=== PATIENT | female | born 1985 | race American Indian/Alaskan Native ===

== ENCOUNTER 2016-09-27 15:24 | Inpatient (IN) | payer MEDICAID ==
[2016-09-27] MEDS ORDERED: POLYCILLIN/NS 2 GM/100 ML 100 ML IV ONE (16:17)
[2016-09-27] MEDS ORDERED: SUBLIMAZE IV PRN (16:18)
[2016-09-27 16:24] LABS: Hematocrit 37.9 % (30.3-42.9); Hemoglobin 12.5 gm/dl (10.1-14.3); Mean Corpuscular HGB Conc 33 % (30-34); Mean Corpuscular Hemoglobin 32 pg (28-32); Mean Corpuscular Volume 95 fl (79-97); Platelet Count 168 K/mm3 (140-440); Red Blood Count 3.98 M/mm3 (3.65-5.03); White Blood Count 9.4 K/mm3 (4.5-11.0)
[2016-09-27] MEDS: LACTATED RINGERS 1,000 ML IV SCH ×2 (16:45→18:13)
[2016-09-27] MEDS ORDERED: PITOCin/NS 30 UNIT/500ML 500 ML IV SCH ×3 (17:00→18:00)
[2016-09-27] MEDS ORDERED: PITOCin/NS 20 UNIT/1000ML DRIP 1,000 ML IV SCH ×2 (17:00→18:00)
[2016-09-27] MEDS ORDERED: ePHEDrine SULFATE IV PRN ×2 (17:02→19:01)
[2016-09-27] MEDS ORDERED: BRETHINE IVP PRN (17:02)
[2016-09-27] MEDS ORDERED: BRETHINE SUB-Q PRN (17:02)
[2016-09-27] MEDS ORDERED: MINERAL OIL PO PRN (17:02)
[2016-09-27] MEDS ORDERED: ZOFRAN IV PRN (17:02)
--- NOTE | 2016-09-27 17:12 | History and Physical Report ---
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 History: chlamydia, herpes Family/Genetic History: heart disease, hypertension, other (breast cancer) Social history: , smoking - Obstetrical History Expected Date of Delivery: 09/28/16 Actual Gestation: 39 Week(s) 6 Day(s) : 4 Para: 3 Hx # Term Pregnancies: 3 Number of Pregnancies: 0 Spontaneous Abortions: 0 Induced : 0 Number of Living Children: 3 Medications and Allergies Allergies Allergy/AdvReac Type Severity Reaction Status Date / Time No Known Allergies Allergy Verified 09/05/13 09:28 Home Medications Medication Instructions Recorded Confirmed Last Taken Type Docusate Sodium [Colace] 100 mg PO BID PRN #60 capsule 08/22/13 09/27/16 Unknown Rx Ferrous Sulfate [Feosol 325 MG tab] 325 mg PO QDAY #30 tablet 08/22/13 09/27/16 Unknown Rx Ibuprofen [Motrin 800 MG tab] 800 mg PO TID PRN #30 tablet 08/22/13 09/27/1611/08 Rx Hydrocodone Bit/Acetaminophen 1 each PO Q4H #24 tablet 09/07/13 09/27/16 Unknown Rx [Vicodin 5/500] Pnv95/Ferrous Fumarate/FA 1 tab PO QDAY 09/27/16 09/27/16 09/26/16 History [ Vitamins Tablet] 1 tab valACYclovir [Valtrex] 500 mg PO QDAY 09/27/16 09/27/16 09/26/16 History 0800 Active Meds: Active Medications Fentanyl (Sublimaze) 100 mcg IV ONCE PRN PRN Reason: Pain , Severe (7-10) Ampicillin Sodium (Polycillin/Ns 2 Gm/100 Ml) 100 mls @ 100 mls/hr IV ONCE ONE Stop: 09/27/16 17:16 Last Admin: 09/27/16 16:45 Dose: 100 mls/hr Lactated Ringer's (Lactated Ringers) 1,000 mls @ 125 mls/hr IV DIRECT DAVID Last Admin: 09/27/16 16:45 Dose: 125 mls/hr Oxytocin/Sodium Chloride (Pitocin/Ns 20 Unit/1000ml Drip) 1,000 mls @ 0 mls/hr IV DIRECT DAVID PRN Reason: As Directed Oxytocin/Sodium Chloride (Pitocin/Ns 30 Unit/500ml) 500 mls @ 4 mls/hr IV TITR DAVID; 4 MILLIUNITS/MIN PRN Reason: Protocol Last Admin: 09/27/16 16:45 Dose: 4 mls/hr Review of Systems All systems: negative Constitutional: weight gain Eyes: no blurred vision, no pain Ears, nose, mouth and throat: deferred Cardiovascular: no chest pain, no palpitations, no edema, no syncope Breasts: deferred Gastrointestinal: no abdominal pain, no nausea, no vomiting, no diarrhea, no constipation Genitourinary: deferred Rectal Exam: deferred Integumentary: deferred - Vital Signs Vital signs: Vital Signs Pulse Pulse Ox 114 H 99 09/27/16 15:46 09/27/16 15:46 Temp Pulse Resp BP Pulse Ox 98.3 F 109 H 18 120/64 99 09/27/16 16:05 09/27/16 16:05 09/27/16 16:05 09/27/16 16:05 09/27/16 16:05 - Physical Exam Breasts: Positive: deferred Cardiovascular: Regular rate Lungs: Positive: Clear to auscultation Abdomen: Positive: normal appearance, soft, normal bowel sounds. Negative: distention, tenderness Genitourinary (Female): Positive: normal external genitalia, normal perenium, perineal/vulvar lesions Vagina: Positive: normal moisture. Negative: discharge Cervix: Negative: lesion Uterus: Positive: normal contour Anus/Rectum: Positive: normal perianal skin Deep Tendon Reflex Grade: Normal +2 - Obstetrical FHR: category 1 Cervical Dilatation: 4 Cervical Effacement Percentage: 60 station: -1 Uterine Contraction Pattern: Irregular Uterine Contraction Intensity: Mild Results Result Diagrams: 09/27/16 16:00 All other labs normal. Assessment and Plan A/P HD#1 s/p srom with meconium GBS + on amp started will start with pitocin close monitor consults signed and thourgh risk reviewed discussed good amara for successful prev x2, came in active labor, non morbid obese expect vaginal delivery
[2016-09-27] MEDS ORDERED: LACTATED RINGERS 1,000 ML IV SCH (18:00)
[2016-09-27] MEDS ORDERED: ePHEDrine SULFATE ONE (18:14)
[2016-09-27] MEDS ORDERED: NARCAN 2 MG/2 ML IV PRN (19:01)
--- NOTE | 2016-09-27 19:01 | Anesthesia Consultation ---
Anesthesia Consult and Med Hx Date of service: 09/27/16 - Airway Anesthetic Teeth Evaluation: Good ROM Head & Neck: Adequate Mental/Hyoid Distance: Adequate Mallampati Class: Class II Intubation Access Assessment: Good - Pulmonary Exam CTA: Yes - Cardiac Exam Cardiac Exam: No Murmur - Pre-Operative Health Status ASA Pre-Surgery Classification: ASA2 Proposed Anesthetic Plan: Epidural - Pulmonary Hx Asthma: No COPD: No Hx Pneumonia: No - Cardiovascular System Hx Hypertension: No - Central Nervous System Hx Seizures: No Hx Psychiatric Problems: No - Endocrine Hx Renal Disease: No Hx End Stage Renal Disease: No Hx Hypothyroidism: No Hx Hyperthyroidism: No - Hematic Hx Anemia: No Hx Sickle Cell Disease: No - Other Systems Hx Alcohol Use: No
[2016-09-27] MEDS ORDERED: fentaNYL-BUPIV 2 MCG/ML-0.125% 100 ML EPIDURAL SCH (20:00)
[2016-09-27] MEDS ORDERED: POLYCILLIN/NS 1 GM/50 ML 50 ML IV SCH (21:06)
[2016-09-28] MEDS ORDERED: TYLENOL PO PRN (00:55)
[2016-09-28] MEDS ORDERED: BENADRYL PO PRN (00:55)
[2016-09-28] MEDS ORDERED: TUCKS PAD TP PRN (00:55)
[2016-09-28] MEDS ORDERED: LANSINOH TP PRN (00:55)
[2016-09-28] MEDS ORDERED: PHENERGAN PO PRN (00:55)
[2016-09-28] MEDS ORDERED: DERMOPLAST TP PRN (00:55)
[2016-09-28] MEDS ORDERED: MILK OF MAGNESIA PO PRN (00:55)
[2016-09-28] MEDS ORDERED: ZOFRAN IV PRN (00:55)
[2016-09-28] MEDS ORDERED: DULCOLAX PR PRN (00:55)
[2016-09-28] MEDS ORDERED: PHENERGAN PR PRN (00:55)
--- NOTE | 2016-09-28 00:55 | Procedure Note ---
OB Delivery Note - Delivery Date of Delivery: 09/28/16 Surgeon: FAY YEPEZ Estimated blood loss: 200cc - Vaginal Delivery position: OP Intrapartum events: meconium Delivery augmentation: pitocin Delivery monitor: external FHT, external uterine Route of delivery: Delivery placenta: spontaneous Delivery cord: 3 umbilical vessels Episiotomy: none Delivery laceration: other (periurethral) Delivery repair: vicryl Anesthesia: epidural Delivery comments: Patient was noted to be c/c/E and commenced to pushing. patient delivered a viable female infact over intact perineum at 0021. Apgars 8 and 9. suction and cord clamped and cut and handed to mom. Placenta delivered intact with three vessel cord at 0026. Weight 8 pounds 5 ounces . a periurethral lac repaired with 3-0 vicryl on the left. Excellent hemostasis and QJD=621. Patient tolerated procedure well. Bonding and breast feeding baby
[2016-09-28] MEDS ORDERED: SODIUM CHLORIDE FLUSH SYRINGE 10 ML IV NR (01:00)
[2016-09-28] MEDS: NORCO 5/325 PO PRN (01:50)
[2016-09-28] MEDS ORDERED: BOOSTRIX IM ONE (06:00)
[2016-09-28] MEDS: MOTRIN PO SCH ×2 (08:10→16:30)
--- NOTE | 2016-09-28 08:19 | Progress Note ---
Assessment and Plan O: VSS AF PP H/H: A: Stable PP Day S/P x 3 P: D/C am Subjective - Subjective Date of service: 09/28/16 Patient reports: appetite normal, voiding normally, pain well controlled, flatus , ambulating normally : doing well Objective - Vital Signs Latest vital signs: Vital Signs Temp Pulse Pulse Resp BP BP Pulse Ox 09/28/16 04:42 99.4 F 93 H 18 126/67 09/28/16 02:29 99.2 F 91 H 20 127/72 09/28/16 01:41 83 124/64 09/28/16 01:27 89 117/57 09/28/16 01:11 86 114/81 09/28/16 00:56 81 114/60 09/28/16 00:41 77 118/64 09/28/16 00:26 76 137/67 09/28/16 00:25 99.2 F 09/28/16 00:16 90 100 09/28/16 00:12 103 H 100 09/28/16 00:08 96 H 128/75 09/28/16 00:07 93 H 100 09/28/16 00:02 86 100 09/27/16 23:57 79 100 09/27/16 23:52 81 100 09/27/16 23:47 106 H 100 09/27/16 23:41 83 100 09/27/16 23:37 76 118/65 100 09/27/16 23:32 82 100 09/27/16 23:26 104 H 100 09/27/16 23:21 85 100 09/27/16 23:16 80 100 09/27/16 23:12 80 100 09/27/16 23:07 90 127/60 100 09/27/16 23:02 88 100 09/27/16 22:56 81 100 09/27/16 22:52 82 100 09/27/16 22:47 84 98 09/27/16 22:42 83 99 09/27/16 22:38 80 126/68 09/27/16 22:37 77 98 09/27/16 22:31 78 98 09/27/16 22:27 78 98 09/27/16 22:21 101 H 96 09/27/16 22:17 94 H 99 09/27/16 22:12 78 100 09/27/16 22:07 86 125/81 100 09/27/16 22:02 77 99 09/27/16 21:57 94 H 99 09/27/16 21:51 88 99 09/27/16 21:47 78 99 09/27/16 21:41 81 100 09/27/16 21:38 72 127/76 09/27/16 21:37 86 98 09/27/16 21:31 93 H 99 09/27/16 21:27 86 99 09/27/16 21:22 85 99 09/27/16 21:16 81 99 09/27/16 21:12 76 99 09/27/16 21:08 84 130/77 09/27/16 21:07 77 99 09/27/16 21:01 79 100 09/27/16 20:56 81 99 09/27/16 20:52 79 99 09/27/16 20:46 79 99 09/27/16 20:42 77 100 09/27/16 20:38 75 125/75 09/27/16 20:37 77 99 09/27/16 20:32 75 99 09/27/16 20:26 83 99 09/27/16 20:21 86 99 09/27/16 20:17 77 99 09/27/16 20:12 82 99 09/27/16 20:07 79 129/74 99 09/27/16 20:02 89 99 09/27/16 19:57 76 99 09/27/16 19:51 78 99 09/27/16 19:47 74 99 09/27/16 19:42 75 99 09/27/16 19:38 66 126/80 09/27/16 19:37 74 97 09/27/16 19:35 98.1 F 18 09/27/16 19:32 81 18 99 09/27/16 19:27 79 99 09/27/16 19:22 76 99 09/27/16 19:17 82 99 09/27/16 19:12 83 98 09/27/16 19:07 82 117/57 98 09/27/16 19:05 91 H 117/56 09/27/16 19:03 88 123/65 09/27/16 19:02 92 H 97 09/27/16 19:01 88 120/68 09/27/16 18:59 86 124/70 09/27/16 18:57 104 H 121/77 98 09/27/16 18:56 85 117/72 09/27/16 18:53 80 105/58 09/27/16 18:52 81 99 09/27/16 18:51 75 113/64 09/27/16 18:49 82 112/61 09/27/16 18:47 91 H 120/75 99 09/27/16 18:45 97 H 114/68 09/27/16 18:43 81 113/59 09/27/16 18:42 86 118/59 99 09/27/16 18:02 86 100 09/27/16 17:57 87 100 09/27/16 17:55 88 118/69 09/27/16 16:05 98.3 F 109 H 18 120/64 99 09/27/16 15:49 115 H 120/60 09/27/16 15:46 114 H 99 Intake and Output 09/27/16 09/28/16 09/28/16 22:59 06:59 14:59 Intake Total 3080 Output Total 500 Balance 2580 Intake: IV 3080 Polycillin/Ns 1 gm/50 ml 50 50 ml @ 100 mls/hr IV Q4HR DAVID Rx#:[id number] Lactated Ringers 1,000 ml 2000 @ 125 mls/hr IV DIRECT DAVID Rx#:[id number] PITOCin/NS 20 UNIT/1000ML 655 DRIP 1,000 ML @ 125 mls/ hr IV DIRECT DAVID Rx#: [id number] Left Wrist 375 Output: Urine 500 Indwelling Catheter 500 Other: Total, Output Amount 500 Weight 93.44 kg Estimated Blood Loss 200 - Exam Breasts: Present: deferred Abdomen: Present: normal appearance, soft Vulva: both: normal Uterus: Present: normal, firm, fundal height below umbilicus. Absent: bogginess Extremities: Present: normal Deep Tendon Reflex Grade: Normal +2
--- NOTE | 2016-09-28 09:05 | Discharge Summary ---
Providers - Providers Date of Admission: 09/27/16 15:28 Date of discharge: 09/29/16 Attending physician: FAY YEPEZ MD Primary care physician: SONIA STALLINGS Hospitalization Reason for admission: active labor, IUP at term Delivery: Episiotomy: none Laceration: none Other procedures: none complications: none Discharge diagnosis: IUP at term delivered baby: female Condition at discharge: Good Disposition: DISCHARGED TO HOME OR SELFCARE Plan - Discharge Medications Prescriptions: Ibuprofen [Motrin 600 MG tab] 600 mg PO Q6H PRN #40 tablet PRN Reason: Pain - Provider Discharge Summary Activity: routine, no sex for 6 weeks, no heavy lifting 4 weeks, no strenuous exercise Diet: routine Additional instructions: [] Smoking cessation referral if applicable(refer to patient education folder for contact #) [] Refer to [facility]'s [facility] Booklet Call your doctor immediately for: * Fever > 100.5 * Heavy vaginal bleeding ( >1 pad per hour) * Severe persistent headache * Shortness of breath * Reddened, hot, painful area to leg or breast * Drainage or odor from incision. * Keep incision clean and dry at all times and follow doctor's instructions regarding bathing/showering - Follow up plan Follow up: SONIA STALLINGS MD [Primary Care Provider] - CAMACHO ROWELL CNM [Advanced Practice Nurse] - (RTO 4 weeks )
--- NOTE | 2016-09-28 09:56 | Progress Note ---
Subjective Date of service: 09/28/16 Interval history: 1st day after normal vaginal delivery Patient is active, ambulated well. Pain is well controlled. No residual neurological deficit. No anesthesia complications Objective - Constitutional Vitals: Vital Signs - 12hr 09/27/16 09/27/16 09/27/16 21:57 22:02 22:07 Temperature Pulse Rate 94 H 77 86 Pulse Rate [ From Monitor] Pulse Rate [ Right Radial] Respiratory Rate Blood Pressure 125/81 Blood Pressure [Right Arm] O2 Sat by Pulse 99 99 100 Oximetry 09/27/16 09/27/16 09/27/16 22:12 22:17 22:21 Temperature Pulse Rate 78 94 H 101 H Pulse Rate [ From Monitor] Pulse Rate [ Right Radial] Respiratory Rate Blood Pressure Blood Pressure [Right Arm] O2 Sat by Pulse 100 99 96 Oximetry 09/27/16 09/27/16 09/27/16 22:27 22:31 22:37 Temperature Pulse Rate 78 78 77 Pulse Rate [ From Monitor] Pulse Rate [ Right Radial] Respiratory Rate Blood Pressure Blood Pressure [Right Arm] O2 Sat by Pulse 98 98 98 Oximetry 09/27/16 09/27/16 09/27/16 22:38 22:42 22:47 Temperature Pulse Rate 80 83 84 Pulse Rate [ From Monitor] Pulse Rate [ Right Radial] Respiratory Rate Blood Pressure 126/68 Blood Pressure [Right Arm] O2 Sat by Pulse 99 98 Oximetry 09/27/16 09/27/16 09/27/16 22:52 22:56 23:02 Temperature Pulse Rate 82 81 88 Pulse Rate [ From Monitor] Pulse Rate [ Right Radial] Respiratory Rate Blood Pressure Blood Pressure [Right Arm] O2 Sat by Pulse 100 100 100 Oximetry 09/27/16 09/27/16 09/27/16 23:07 23:12 23:16 Temperature Pulse Rate 90 80 80 Pulse Rate [ From Monitor] Pulse Rate [ Right Radial] Respiratory Rate Blood Pressure 127/60 Blood Pressure [Right Arm] O2 Sat by Pulse 100 100 100 Oximetry 09/27/16 09/27/16 09/27/16 23:21 23:26 23:32 Temperature Pulse Rate 85 104 H 82 Pulse Rate [ From Monitor] Pulse Rate [ Right Radial] Respiratory Rate Blood Pressure Blood Pressure [Right Arm] O2 Sat by Pulse 100 100 100 Oximetry 09/27/16 09/27/16 09/27/16 23:37 23:41 23:47 Temperature Pulse Rate 76 83 106 H Pulse Rate [ From Monitor] Pulse Rate [ Right Radial] Respiratory Rate Blood Pressure 118/65 Blood Pressure [Right Arm] O2 Sat by Pulse 100 100 100 Oximetry 09/27/16 09/27/16 09/28/16 23:52 23:57 00:02 Temperature Pulse Rate 81 79 86 Pulse Rate [ From Monitor] Pulse Rate [ Right Radial] Respiratory Rate Blood Pressure Blood Pressure [Right Arm] O2 Sat by Pulse 100 100 100 Oximetry 09/28/16 09/28/16 09/28/16 00:07 00:08 00:12 Temperature Pulse Rate 93 H 96 H 103 H Pulse Rate [ From Monitor] Pulse Rate [ Right Radial] Respiratory Rate Blood Pressure 128/75 Blood Pressure [Right Arm] O2 Sat by Pulse 100 100 Oximetry 09/28/16 09/28/16 09/28/16 00:16 00:25 00:26 Temperature 99.2 F Pulse Rate 90 76 Pulse Rate [ From Monitor] Pulse Rate [ Right Radial] Respiratory Rate Blood Pressure 137/67 Blood Pressure [Right Arm] O2 Sat by Pulse 100 Oximetry 09/28/16 09/28/16 09/28/16 00:41 00:56 01:11 Temperature Pulse Rate 77 81 86 Pulse Rate [ From Monitor] Pulse Rate [ Right Radial] Respiratory Rate Blood Pressure 118/64 114/60 114/81 Blood Pressure [Right Arm] O2 Sat by Pulse Oximetry 09/28/16 09/28/16 09/28/16 01:27 01:41 02:29 Temperature 99.2 F Pulse Rate 89 83 Pulse Rate [ 91 H From Monitor] Pulse Rate [ Right Radial] Respiratory 20 Rate Blood Pressure 117/57 124/64 Blood Pressure 127/72 [Right Arm] O2 Sat by Pulse Oximetry 09/28/16 09/28/16 04:42 08:03 Temperature 99.4 F 98.6 F Pulse Rate Pulse Rate [ 93 H From Monitor] Pulse Rate [ 82 Right Radial] Respiratory 18 18 Rate Blood Pressure Blood Pressure 126/67 110/68 [Right Arm] O2 Sat by Pulse Oximetry - Labs CBC & Chem 7: 09/27/16 16:00
[2016-09-28] MEDS: COLACE PO SCH (12:52)
[2016-09-28] MEDS: PRENATAL VITAMIN PO SCH (12:52)
[2016-09-28 15:49] LABS: Hematocrit 33.2 % (30.3-42.9)
--- NOTE | 2016-09-29 08:02 | Event Note ---
Date: 09/29/16 Babies bilirubin 14, unable to be discharged today. Plan 48hr stay
[2016-09-29] MEDS: MOTRIN PO SCH ×2 (12:15→18:10)
[2016-09-29] MEDS: COLACE PO SCH (12:47)
[2016-09-29] MEDS: NORCO 5/325 PO PRN (18:10)
[2016-09-30] MEDS: MOTRIN PO SCH ×3 (00:26→14:35)
[2016-09-30] MEDS: PRENATAL VITAMIN PO SCH (14:35)
[2016-09-30] MEDS: COLACE PO SCH ×2 (14:35→17:59)
[2016-09-30] MEDS: NORCO 5/325 PO PRN (15:59)
[2016-09-30 17:58] VITALS: BP 126/82
== END 2016-09-30 16:30 | disposition home or self-care (01) | DRG 775 ==
LOC: TRG 15:24 → LD 15:28 → OB 09-28 02:01
PROVIDERS: ADMIT Obstetrics & Gynecology; ATTEND Obstetrics & Gynecology
PROC: 10E0XZZ Delivery of Products of Conception, External Approach (ICD-10-PCS; principal; 2016-09-28)
PROC: 0UQMXZZ Repair Vulva, External Approach (ICD-10-PCS; 2016-09-28)
PROC: 3E0S3CZ (ICD-10-PCS; 2016-09-28)
PROC: 00HU33Z Insertion of Infusion Device into Spinal Canal, Percutaneous Approach (ICD-10-PCS; 2016-09-28)
DX: O99.824 Streptococcus B carrier state complicating childbirth (principal); O77.0 Labor and delivery complicated by meconium in amniotic fluid; O34.219 Maternal care for unspecified type scar from previous cesarean delivery; O71.82 Other specified trauma to perineum and vulva; Z3A.39 39 weeks gestation of pregnancy; Z37.0 Single live birth; Z22.4 Carrier of infections with a predominantly sexual mode of transmission; Z86.19 Personal history of other infectious and parasitic diseases; Z90.49 Acquired absence of other specified parts of digestive tract
CPT/HCPCS: 36415; 85014; 85018; 85027; 86850; 86900; 86901; 90715; 99211; G0463; J0290; J2590; J7120

== ENCOUNTER 2018-05-21 09:27 | Inpatient (IN) | payer MEDICAID ==
[2018-05-21] MEDS ORDERED: LACTATED RINGERS 2,000 ML ONE (09:53)
[2018-05-21] MEDS ORDERED: BICITRA ONE (10:04)
[2018-05-21] MEDS ORDERED: REGLAN ONE (10:05)
[2018-05-21] MEDS ORDERED: PEPCID IV ONE ×2 (10:05→10:13)
[2018-05-21] MEDS ORDERED: ANCEF/STERILE WATER 2 GM/20 ML 2 GM/20 ML SYRINGE IV ONE (10:05)
[2018-05-21] MEDS ORDERED: PITOCin/NS 20 UNIT/1000ML DRIP 20,000 MILLIUNITS/1,000 ML BAG IV ONE (10:06)
[2018-05-21] MEDS ORDERED: REGLAN IV ONE (10:13)
[2018-05-21] MEDS ORDERED: BICITRA PO ONE (10:13)
[2018-05-21] MEDS ORDERED: BRETHINE ONE (10:14)
--- NOTE | 2018-05-21 10:20 | History and Physical Report ---
History of Present Illness Date of examination: 05/21/18 Date of admission: 05/21/18 09:28 Chief complaint: contractions History of present illness: This is a 33 yo at 39 weeks c/o contractions and noted to be 4cm. She is schedueld for a repeat c/sec on tomorrow. Her care is from [facility] with hx of tubal ligation that failed in 10/2016. Her prenatl care consist of Obesity , HSV2. 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 denies: smoking, alcohol abuse, prescription drug abuse - Obstetrical History Expected Date of Delivery: 05/28/18 Actual Gestation: 39 Week(s) 0 Day(s) : 5 Para: 4 Hx # Term Pregnancies: 4 Number of Pregnancies: 0 Spontaneous Abortions: 0 Induced : 0 Number of Living Children: 4 Medications and Allergies Allergies Allergy/AdvReac Type Severity Reaction Status Date / Time No Known Allergies Allergy Verified 11/08/16 10:10 Home Medications Medication Instructions Recorded Confirmed Last Taken Type Pnv,Calcium 72/Iron/Folic Acid 1 tab PO DAILY 05/21/18 05/21/18 1 Day Ago History [Pnv Plus Multivit Tab] ~05/20/18 Active Meds: Active Medications Citric Acid/Sodium Citrate (Bicitra) 30 ml PO ONCE ONE Stop: 05/21/18 10:14 Famotidine (Pepcid) 20 mg IV ONCE ONE Stop: 05/21/18 10:14 Lactated Ringer's (Lactated Ringers) 1,000 mls @ 2,250 mls/hr IV PREOP DAVID Stop: 05/22/18 11:27 Oxytocin/Sodium Chloride (Pitocin/Ns 20 Unit/1000ml Drip) 20 units in 1,000 mls @ 0 mls/hr IV TITR DAVID Metoclopramide HCl (Reglan) 10 mg IV ONCE ONE Stop: 05/21/18 10:14 Review of Systems All systems: negative Genitourinary: contractions - Vital Signs Vital signs: Vital Signs Pulse BP 77 120/71 05/21/18 09:58 05/21/18 09:58 Temp Pulse Resp BP Pulse Ox 77 120/71 05/21/18 09:58 05/21/18 09:58 - Physical Exam Breasts: Positive: normal Cardiovascular: Regular rate, Normal S1 Lungs: Positive: Clear to auscultation, Normal air movement Abdomen: Positive: normal appearance, soft, normal bowel sounds. Negative: distention, tenderness, guarding Genitourinary (Female): Positive: normal external genitalia, normal perenium Vagina: Positive: normal moisture Uterus: Positive: enlarged Anus/Rectum: Positive: normal perianal skin Extremities: Positive: normal Deep Tendon Reflex Grade: Normal +2 - Obstetrical FHR: category 1 Cervical Dilatation: 4 Cervical Effacement Percentage: 90 station: 0 Uterine Contraction Pattern: Regular Uterine Contraction Intensity: Mild Results All other labs normal. Assessment and Plan A/P HD#1 IUP 39+0 weeks Labor previous csec - repeat desires infertility ( hx of failed tubal ligation- schedueld for sapingectomy consents signed will proceed to repeat csec and salpingectomy
[2018-05-21 10:43] LABS: Basophils % (Auto) 0.6 % (0.0-1.8); Eosinophils % (Auto) 0.8 % (0.0-4.3); Hematocrit 38.8 % (30.3-42.9); Hemoglobin 13.1 gm/dl (10.1-14.3); Lymphocytes % (Auto) 31.1 % (13.4-35.0); Mean Corpuscular HGB Conc 34 % (30-34); Mean Corpuscular Hemoglobin 32 pg (28-32); Mean Corpuscular Volume 95 fl (79-97); Monocytes # (Auto) 0.5 K/mm3 (0.0-0.8); Platelet Count 165 K/mm3 (140-440); Red Blood Count 4.08 M/mm3 (3.65-5.03); Red Cell Distribution Width 13.3 % (13.2-15.2)
[2018-05-21] MEDS ORDERED: LACTATED RINGERS 1,000 ML IV SCH (11:00)
[2018-05-21] MEDS ORDERED: PITOCin/NS 20 UNIT/1000ML DRIP 20 UNITS/1,000 ML BAG IV SCH ×2 (11:00→14:00)
[2018-05-21] MEDS ORDERED: ANCEF/STERILE WATER 2 GM/20 ML IV ONE (11:25)
[2018-05-21] MEDS ORDERED: WATER FOR IRRIG STERILE IR ONE (11:50)
[2018-05-21] MEDS ORDERED: NACL 0.9% IR ONE (11:50)
[2018-05-21] MEDS ORDERED: TORADOL IV ONE (12:07)
[2018-05-21] MEDS ORDERED: MORPHINE ONE (12:30)
--- NOTE | 2018-05-21 12:58 | Procedure Note ---
OB Delivery Note - Delivery Date of Delivery: 05/21/18 Surgeon: FAY YEPEZ - Section Preop diagnosis: repeat , desires sterilization Postop diagnosis: same section procedure: repeat low transverse, other (salpingectomy) Disposition: PACU Complications: none - Infant A at 1 minute: 8 at 5 minutes: 9 Gender: Female
[2018-05-21] MEDS ORDERED: DILAUDID IV PRN ×2 (13:08)
[2018-05-21] MEDS ORDERED: ZOFRAN IV PRN (13:08)
[2018-05-21] MEDS ORDERED: PHENERGAN PO PRN (13:08)
[2018-05-21] MEDS ORDERED: PHENERGAN PR PRN (13:08)
[2018-05-21] MEDS ORDERED: NARCAN 0.4 MG/1 ML IV PRN ×2 (13:08→13:17)
--- NOTE | 2018-05-21 13:08 | Anesthesia Consultation ---
Anesthesia Consult and Med Hx Date of service: 05/21/18 - Airway Anesthetic Teeth Evaluation: Good ROM Head & Neck: Adequate Mental/Hyoid Distance: Adequate Mallampati Class: Class II Intubation Access Assessment: Good - Pulmonary Exam CTA: Yes - Cardiac Exam Cardiac Exam: No Murmur - Pre-Operative Health Status ASA Pre-Surgery Classification: ASA2 Proposed Anesthetic Plan: Epidural - Pulmonary Hx Asthma: No COPD: No Hx Pneumonia: No - Cardiovascular System Hx Hypertension: No - Central Nervous System Hx Seizures: No Hx Psychiatric Problems: No - Endocrine Hx Renal Disease: No Hx End Stage Renal Disease: No Hx Hypothyroidism: No Hx Hyperthyroidism: No - Hematic Hx Anemia: No Hx Sickle Cell Disease: No - Other Systems Hx Alcohol Use: No Hx Cancer: No
--- NOTE | 2018-05-21 13:09 | Post Anesthesia Evaluation ---
- Post Anesthesia Evaluation Patient Participated: Yes Airway Patent: Yes Stable Respiratory Function: Yes Nausea/Vomiting: No Temp > 96.8F: Yes Pain Manageable: Yes Adequeate Hydration: Yes Anesthesia Complications: No
--- NOTE | 2018-05-21 13:11 | Operative Report ---
Operative Report Operative Report: DATE OF OPERATION: 05/21/18 PREOPERATIVE DIAGNOSES: 1. Prior section. 2. Declines vaginal after . 3. A 39 weeks gestation. 4. Failed previosu tubal with filshie clamps 5. Severe anemia with HGB 03/11 POSTOPERATIVE DIAGNOSES: 1-4 JESSIE 5. Meconium( thick) OPERATION PERFORMED: Repeat low transverse and salpingectomy SURGEON: Genesis Miller MD ROCKET ASSEMBLY OPERATOR: Sadie Georges MD ANESTHESIA: Spinal. ESTIMATED BLOOD LOSS: 750 mL. FINDINGS: A viable female weighing 6 pounds and 11 oz with Apgars of 8 and 9. COMPLICATIONS: None. DISPOSITION: Stable. DESCRIPTION OF OPERATION: After informed consent was obtained, the patient was brought back to the operative suite where adequate spinal anesthesia was obtained. The patient was then placed in the dorsal supine position and prepped and draped in the sterile fashion. A repeat Pfannenstiel skin incision was made with a blade and carried down through the subcutaneous tissues to the fascia, which was extended in the transverse fascia with Frank scissors. The fascial incision was then dissected off the rectus muscles both bluntly and sharply. The rectus muscle was in the midline. The peritoneum was entered bluntly. The peritoneal incision was then extended both superiorly and inferiorly with good visualization of the underlying bowel and bladder. The bladder blade was placed, and the vesicouterine fascia was incised to create a bladder flap in a low transverse position. This was developed digitally. A low transverse uterine incision was made with the blade and carried down through the layers of the uterus until membranes bulged through the incision. The uterine incision was then extended digitally. Hand was placed inside the pelvis, and the head was brought up out of the pelvis and delivered atraumatically with gentle fundal pressure. Prior to the head being delivered, actually through the skin, the sound of the baby starting to cry was noted. After the head was delivered, the mouth and nares were aggressively bulb suctioned. Remainder of the infant was delivered, and the was passed to the awaiting nursing staff for additional care. Cord was doubly clamped and cut and cord blood was obtained. The placenta was then manually extracted, and the uterus was exteriorized. The uterus was cleaned of remaining clot. The uterine incision was readily identified and closed in two layers, first one with running locking followed by second imbricating layer of 0 Vicryl. Tissel and surgicell applied. Attention was turned to the right tube and fishe clips x 2 on tube barely and ligasure used to remove tube and clamps in entirety . The left tube had one filshe clip not well approximated and ligasure machine used to remove entir tube. Both tubes sent to pathology . The vesicouterine fascia was then reapproximated with 2-0 Vicryl. The uterus was placed back inside the pelvis. Copious irrigation and inspection of the incision was satisfactory. Interceed used on the uterus. The peritoneum was then closed with 2-0 Vicryl in a running fashion. The fascia was closed with 0 PDS from one angle to the next. Subcutaneous tissues were copiously irrigated, and final bleeders were cauterized. The incision was then reapproximated with surgical Alton needle for subcuticular stitch. Patient hematocrit noted to be 6/ 16 attempted to repeat intraop and unsuccessful both anesthesia, nurse, charge nurse and will transfuse 2U as blood is awaiting. patient tolerated procedure well transferred to PACU.
[2018-05-21] MEDS ORDERED: TUCKS PAD TP PRN (13:17)
[2018-05-21] MEDS ORDERED: MYLICON PO PRN (13:17)
[2018-05-21] MEDS ORDERED: NORCO 5/325 PO PRN (13:17)
[2018-05-21] MEDS ORDERED: LANSINOH TP PRN (13:17)
[2018-05-21] MEDS ORDERED: MILK OF MAGNESIA PO PRN (13:17)
[2018-05-21] MEDS ORDERED: MORPHINE IV PRN (13:17)
[2018-05-21] MEDS ORDERED: TYLENOL PO PRN (13:17)
[2018-05-21] MEDS ORDERED: TORADOL IV PRN (13:17)
[2018-05-21] MEDS ORDERED: SODIUM CHLORIDE FLUSH SYRINGE 10 ML IV NR ×2 (14:00)
[2018-05-21] MEDS ORDERED: fentaNYL-BUPIV 2 MCG/ML-0.125% 200 MCG/100 ML BAG EPIDURAL SCH (14:00)
[2018-05-21] MEDS ORDERED: D5LR 1,000 ML IV SCH (14:00)
[2018-05-21] MEDS: TORADOL IV PRN ×2 (15:48→23:11)
[2018-05-22 02:06] LABS: Hematocrit 30.6 % (30.3-42.9); Hemoglobin 10.3 gm/dl (10.1-14.3)
[2018-05-22] MEDS ORDERED: BENADRYL PO PRN (03:28)
[2018-05-22] MEDS: TORADOL IV PRN (05:29)
--- NOTE | 2018-05-22 08:15 | Progress Note ---
Assessment and Plan A: POD#1 s/p repeat with bilateral salpingectomy Asymptomatic anemia P: Routine postoperative care Subjective - Subjective Date of service: 05/22/18 Principal diagnosis: s/p repeat with bilateral salpingectomy Interval history: pt with no complaints. Patient reports: appetite normal, voiding normally, pain well controlled, no flatus, no bowel movement : doing well Objective - Vital Signs Latest vital signs: Vital Signs Temp Pulse Resp BP BP Pulse Ox 05/22/18 01:32 98.3 F 71 18 116/69 05/21/18 20:33 98.5 F 60 18 105/63 05/21/18 14:50 98.5 F 67 16 117/71 99 05/21/18 14:15 56 L 16 117/70 99 05/21/18 14:00 50 L 15 113/71 100 05/21/18 13:45 58 L 16 115/71 99 05/21/18 13:30 80 12 108/67 100 05/21/18 13:26 51 L 17 112/67 100 05/21/18 13:24 99 H 98 05/21/18 13:23 58 L 12 139/58 100 05/21/18 13:21 98.1 F 54 L 12 128/62 99 05/21/18 13:19 101 H 97 05/21/18 13:14 102 H 97 05/21/18 13:09 101 H 98 05/21/18 13:04 111 H 98 05/21/18 12:59 111 H 97 05/21/18 12:55 105 H 122/71 05/21/18 12:54 105 H 98 05/21/18 09:58 77 120/71 Intake and Output 05/21/18 05/22/18 05/22/18 22:59 06:59 14:59 Intake Total 260 Output Total 600 Balance -340 Intake: Intake, Free Water 260 Output: Urine 600 Indwelling Catheter 600 Other: Total, Output Amount 600 - Exam Breasts: Present: deferred Cardiovascular: Present: Regular rate Lungs: Present: Clear to auscultation Abdomen: Present: soft, distention (mild ), abnormal bowel sounds (hypoactive ) Uterus: Present: fundal height below umbilicus Extremities: Present: normal Incision: Present: dressed - Labs Labs: Abnormal lab results 08/26/18 08/26/18 Range/Units 10:15 10:15 [place] % (Auto) 8.0 H (0.0-7.3) % Crossmatch See Detail
[2018-05-22] MEDS: FEOSOL PO SCH (09:10)
[2018-05-22] MEDS: PRENATAL VITAMIN PO SCH (09:11)
[2018-05-22] MEDS: PERCOCET 5/325 PO PRN ×2 (11:15→16:55)
[2018-05-22] MEDS ORDERED: M-M-R II VACCINE SUB-Q ONE (13:20)
[2018-05-22] MEDS ORDERED: BOOSTRIX IM ONE (13:20)
[2018-05-22] MEDS ORDERED: MILK OF MAGNESIA PO SCH (16:00)
[2018-05-22] MEDS: MOTRIN PO PRN (16:55)
[2018-05-23] MEDS: PERCOCET 5/325 PO PRN ×3 (01:40→16:47)
[2018-05-23] MEDS ORDERED: BOOSTRIX IM ONE (02:00)
--- NOTE | 2018-05-23 08:26 | Progress Note ---
Assessment and Plan - Patient Problems (1) Previous delivery, delivered Current Visit: Yes Status: Acute Plan to address problem: The patient is doing well and meeting discharge criteria Subjective - Subjective Date of service: 05/23/18 Principal diagnosis: s/p repeat with bilateral salpingectomy Interval history: The patient is without any significant complaints. A painful control and she is tolerating a regular diet. Patient reports: appetite normal, voiding normally, pain well controlled [place]: doing well Objective - Vital Signs Latest vital signs: Vital Signs Temp Pulse Resp BP BP Pulse Ox 05/23/18 00:00 98.2 F 66 18 112/69 05/22/18 16:34 98.9 F 76 16 114/58 97 Intake and Output 05/22/18 05/23/18 05/23/18 22:59 06:59 14:59 Intake Total 480 Balance 480 Intake: Oral 480 Other: Total, Intake Amount 240 # Voids Void 1 # Bowel Movements 1 - Exam Uterus: Present: normal, firm Incision: Present: normal
--- NOTE | 2018-05-23 08:28 | Discharge Summary ---
Providers - Providers Date of Admission: 05/21/18 09:28 Date of discharge: 05/23/18 Attending physician: FAY YEPEZ MD Primary care physician: FAY YEPEZ MD Hospitalization Reason for admission: section Delivery: Procedure: section, bilateral tubal ligation, repeat low transverse Incision: normal Discharge diagnosis: IUP at term delivered Hospital course: The patient presented in active labor with a history of prior delivery. The patient elected to undergo repeat delivery. See operative note for details of surgery. Postoperative course was uncomplicated. Condition at discharge: Good Disposition: DC-01 TO HOME OR SELFCARE - Discharge Diagnoses (1) Previous delivery, delivered Status: Acute Plan - Discharge Medications Prescriptions: Ferrous Sulfate 325 mg PO TID #60 tablet. Ibuprofen [Motrin] 600 mg PO Q8H PRN #30 tablet PRN Reason: Pain oxyCODONE /ACETAMINOPHEN [Percocet 5/325] 1 tab PO Q6HR PRN #30 tablet PRN Reason: Pain - Provider Discharge Summary Activity: no sex for 6 weeks, no heavy lifting 4 weeks, no strenuous exercise Diet: routine Instructions: routine Additional instructions: [] Smoking cessation referral if applicable(refer to patient education folder for contact #) [] Refer to [facility] Booklet Call your doctor immediately for: * Fever > 100.5 * Heavy vaginal bleeding ( >1 pad per hour) * Severe persistent headache * Shortness of breath * Reddened, hot, painful area to leg or breast * Drainage or odor from incision. * Keep incision clean and dry at all times and follow doctor's instructions regarding bathing/showering Scheduled postoperative visit in 2 weeks - Follow up plan
[2018-05-23] MEDS: FEOSOL PO SCH (10:30)
[2018-05-23] MEDS: PRENATAL VITAMIN PO SCH (10:30)
[2018-05-23] MEDS: MOTRIN PO PRN (16:46)
[2018-05-24] MEDS: MOTRIN PO PRN ×2 (04:34→11:06)
[2018-05-24] MEDS: PRENATAL VITAMIN PO SCH (11:06)
[2018-05-24] MEDS: FEOSOL PO SCH (11:06)
[2018-05-24 17:14] VITALS: BP 122/77
== END 2018-05-24 17:30 | disposition home or self-care (01) | DRG 765 ==
LOC: TRG 09:27 → APU 09:28 → TRG 10:06 → OB 15:36
PROVIDERS: ADMIT Obstetrics & Gynecology; ATTEND Obstetrics & Gynecology
PROC: 10D00Z1 Extraction of Products of Conception, Low, Open Approach (ICD-10-PCS; principal; 2018-05-21)
PROC: 0UT70ZZ Resection of Bilateral Fallopian Tubes, Open Approach (ICD-10-PCS; 2018-05-21)
PROC: 3E0234Z Introduction of Serum, Toxoid and Vaccine into Muscle, Percutaneous Approach (ICD-10-PCS; 2018-05-22)
DX: O34.211 Maternal care for low transverse scar from previous cesarean delivery (principal); O98.52 Other viral diseases complicating childbirth; O99.03 Anemia complicating the puerperium; D64.9 Anemia, unspecified; O99.214 Obesity complicating childbirth; E66.9 Obesity, unspecified; O77.0 Labor and delivery complicated by meconium in amniotic fluid; B00.9 Herpesviral infection, unspecified; Z3A.39 39 weeks gestation of pregnancy; Z37.0 Single live birth; Z68.30 Body mass index [BMI] 30.0-30.9, adult; Z90.49 Acquired absence of other specified parts of digestive tract; Z82.49 Family history of ischemic heart disease and other diseases of the circulatory system; Z80.3 Family history of malignant neoplasm of breast; Z30.2 Encounter for sterilization; Z23 Encounter for immunization
CPT/HCPCS: 36415; 85014; 85018; 85025; 86850; 86900; 86901; 86920; 88302; 90471; 90715; 99211; C9250; G0463; J0690; J1885; J2270; J2405; J2590; J2765; J3105; J7120